=== PATIENT | male | born 1960 | race Caucasian/White ===

== ENCOUNTER 2020-06-01 14:52 | Emergency (ER) | payer OTHER, SELFPAY ==
[2020-06-01] VITALS (49 sets, daily range): BP systolic 114–177; BP diastolic 58–123; PULSE 89–114; RESP 14–23; TEMP 36.4–36.9; O2SAT 91–99
--- NOTE | 2020-06-01 15:00 | DI.CT_ITS ---
EXAM: CT HEAD CERVICAL SPINE WO CLINICAL HISTORY: fall, altered, right hemiparalysis. TECHNIQUE: Imaging Protocol: Axial computed tomography images with coronal and sagittal reformatted images were created and reviewed COMPARISON: No exams were available for comparison FINDINGS: CT Head: Ventricles and Extra axial spaces: Normal in size and morphology for the patient's age. Hemorrhage: None. Cerebral parenchyma: The large left middle cerebral artery distribution infarct. Extensive edema is seen in the left middle cerebral artery distribution. There is effacement of the left hemispheric hermosillo lci. There is also mass effect on the left lateral ventricle. No intracranial hemorrhage is seen. There is an also area of decreased attenuation involving the medial aspect of the left cerebellum. Midline shift: None. Brainstem/Cerebellum: Normal. Calvarium: Normal. Visualized Paranasal sinuses/Mastoids: Clear. Soft Tissues: Unremarkable. CT Cervical Spine: The examination is limited due to patient motion artifact. Bones: No acute fracture or subluxation. There is reversal of the normal cervical lordosis. This may be due to muscle spasm or patient positioning. Soft Tissues: Unremarkable. Lung Apices: Clear. IMPRESSION: 1. Findings consistent with a large acute to subacute left MCA distribution infarct. No evidence of hemorrhagic conversion. 2. Findings suspicious for an acute to subacute left cerebellar lobe infarct. 3. No acute fracture or subluxation in the cervical spine. RADIATION DOSE DELIVERED: 1,882.16mGy.cm Total DLP DATA REPOSITORY: All CT scans at this facility are submitted to the National Radiology Data Registry (NRDR) Dose Index Registry (DIR) with the [employer] (A[employer]). RADIATION OPTIMIZATION: All CT scans at this facility use at least one of these dose optimization te chniques: automated exposure control; mA and/or kV adjustment per patient size (includes targeted exa ms where dose is matched to clinical indication); or iterative reconstruction.
--- NOTE | 2020-06-01 15:00 | DI.CT_ITS ---
EXAM: CT CHEST WO CLINICAL HISTORY: fall, altered, right hemiparalysis. TECHNIQUE: Imaging protocol: Axial computed tomography images were obtained and coronal and sagittal reformatted images were created and reviewed. COMPARISON: No exams were available for comparison FINDINGS: The examination is limited due to patient motion artifact. Tracheobronchial tree: Patent where visualized. Pulmonary parenchyma: There is an infiltrate seen in the right middle lobe. No architectural distort ion. Mediastinum and Sobia: No dominant adenopathy or fluid collection. Small hiatal hernia. Pleura: No effusion or pneumothorax. Heart: The heart is not dilated. No coronary artery calcifications are seen. No pericardial effusion. Aorta: Thoracic aorta non-dilated. Upper abdomen: Status post cholecystectomy. Lymph nodes: Within normal limits. Soft tissues: Unremarkable. Bones:Normal. Examination severely limited due to patient motion artifact. Sternal or rib fractures cannot be excluded. IMPRESSION: 1. Limited examination due to significant patient motion artifact. 2. Right middle lobe infiltrate which may represent atelectasis, scarring or pneumonia. 3. No definite evidence of a pulmonary contusion. RADIATION DOSE DELIVERED: 866.82mGy.cm Total DLP 866.82mGy.cm Total DLP 866.82mGy.cm Total DLP 866.82mGy.cm Total DLP DATA REPOSITORY: All CT scans at this facility are submitted to the National Radiology Data Registry (NRDR) Dose Index Registry (DIR) with the [employer] (ACR). RADIATION OPTIMIZATION: All CT scans at this facility use at least one of these dose optimization te chniques: automated exposure control; mA and/or kV adjustment per patient size (includes targeted exa ms where dose is matched to clinical indication); or iterative reconstruction.
--- NOTE | 2020-06-01 15:00 | RT.EKG_ITS ---
APPROVED REPORT Exam: Resting ECG Patient Location: E HR:97 bpm ECG Measurements Heart Rate 97 AXIS AL 62 P 49 QRSd 104 QRS 16 QT 359 T [id number] QTc 457 Conclusion Sinus rhythm...normal P axis, V-rate 60- 99 Physician: Rate 97, sinus rhythm, intervals normal, no significant ST elevation, however there is min imal depression in V3 through V6, no reciprocal elevation, no STEMI notable artifact secondary to cur rent patient state.
[2020-06-01] MEDS: Normal Saline 1,000 ML 1000 ML IV ×2 (15:10→16:30)
[2020-06-01 15:17] LABS: Abs Immature Grans 0.11 10^3/uL (0.0-0.06); Absolute Basophil Count 0.03 10^3/uL (0.0-0.2); Basophils % 0.2; HCT 51.1 % (40.0-50.0); HGB 16.8 g/dL (13.5-17.5); Immature Grans % 0.6; Lymphocytes % 5.7; MCHC 32.9 % (32.0-36.0); MCV 88.1 fL (80-95); MPV 10.8 fL (8.0-11.0); Monocytes % 7.8; Neutrophils % 85.7; Nucleated RBC 0 %; Platelet Count 298 10^3/uL (130-400); RDW 13.3 % (11.8-14.1); RDW-SD 42.9 fL; WBC 17.15 10^3/uL (4.4-10.8)
[2020-06-01 15:18] LABS: Absolute Lymphocyte Count 0.98 10^3/uL (1.2-3.4); Absolute Monocyte Count 1.34 10^3/uL (0.1-0.8)
[2020-06-01 15:19] LABS: BE (Venous) 1 mmol/L (-2-3); HCO3 (Venous) 26 mmol/L (23-28); O2 Sat (Venous) 60 %; TCO2 (Venous) 23 mmol/L (24-29); pCO2 (Venous) 48 mmHg (41-51); pH (Venous) 7.35 (7.31-7.41); pO2 (Venous) 35 mmHg
[2020-06-01] MEDS: Lidocaine 2% Jelly 6 ML SYR (15:20)
--- NOTE | 2020-06-01 15:20 | ED.GENADUL_ITS ---
Discharge Plan Disposition Patient Disposition: [facility] Condition: Serious Discharge Details Clinical Impression: Stroke, Rhabdomyolysis, Altered mental status Primary Care Provider: Unknown,Unknown ED Provider: Trevor Mariee Home Meds and New Rx's Prescriptions: No Action No Known Home Meds RF: 0 Medical Decision Making Upon my evaluation, this patient had a high probability of imminent or life- threatening deterioration, which required my direct attention, intervention, and personal management. I have personally provided 45 minutes of critical care time exclusive of time spent on separately billable procedures. Time includes review of laboratory data, radiology results, discussion with consultants, and monitoring for potential decompensation. Interventions were performed as documented. 60-year-old male with no known significant past medical history who presents today for evaluation of altered mental status and stroke. Patient was found by friends on the floor of his home, unknown downtime but the patient states it has been 2 days. When EMS arrived he had notable right-sided deficits, blood sugar and vital signs are stable. He was brought to the ER for further assessment. Currently the patient denies any complaints. He denies any headache chest pain shortness of breath. He does not appear to be an overly reliable historian though. History is otherwise limited to EMS report and patient's current stated complaints. No known history of stroke, no known history of blood thinner use. Physical exam demonstrates notable right sided hemiparesis, which is also insensate, no evidence of focal trauma but he does have mild bruising on the upper abdominal/lower chest wall and the anterior aspect, as well as notable bruising of his right hand. No midline cervical thoracic or lumbar spine tenderness when the patient was rolled. No other signs of significant trauma. NIH stroke scale is 16 based on deficits, paralysis, insensate findings and mild slurred speech. Unknown downtime, but expected to be 2 days per patient history. Patient is not a TPA candidate at this time. Will get CT scan of the head neck and chest, give warm fluids to warm him up, as his current temperature is mildly hypothermic. Will evaluate for potential other toxic etiologies that could have brought about the symptoms, will monitor closely and reassess. 5:30 PM Laboratory work-up is returned, white count of 17, lactate of 1.8, electrolytes surprisingly normal, magnesium slightly high at 3, CPK elevated at 2900, clear indication for rhabdomyolysis, electrolytes otherwise stable, urinalysis shows no evidence of infection, proBNP negative suggesting no fluid overload, troponin normal, TSH elevated at 4.52, but does not appear to be indicative of myxedema coma. Urinalysis negative for infection, salicylates acetaminophen and alcohol all negative. CT shows large left MCA distribution stroke without hemorrhagic conversion. Small cerebellar infarct. No signs of bleed. CT negative of the neck, chest CT negative for acute process, hand x-ray negative for acute process. We will transfer patient to [facility] for further stroke management, no indication for TPA at this time. 6:11 PM Still pending [facility] callback, we were contacted by the patient's neighbors, they state that the patient has no other friends or family to speak of, they did asked to be placed on the patient's HIPAA form. This decision was deferred to our briefcase sewer. Patient remains hemodynamically stable here, mental status is unchanged. 7:11 PM I have been in contact with [facility] neurology Dr. Blackwood, we discussed the case review of imaging, he agrees with the assessment and plan, and does favor transfer to [facility]. Patient will be given rectal aspirin. Repeat neurologic exam here demonstrates potential minimal improvement but certainly no decline or worsening. He remains hemodynamically stable. For his rhabdomyolysis he has been given 2 L, followed by 125 of normal saline per hour. I have extensively reviewed the treatment plan with the patient. I have addressed all patient concerns at this time. I have also discussed the plan with the admitting physician and they agree with the current assessment and plan and have agreed to assume responsibility for the patient. All parties demonstrate verbal understanding and agreement with our assessment and plan at this time. At time of transfer the patient was reassessed and continued to demonstrate current medical stability. No signs of acute respiratory distress requiring intubation, hemodynamic instability requiring pressor support, or rapidly declining mental status. The patient is stable for transport. EKG 15: 15 Rate 97, sinus rhythm, intervals normal, no significant ST elevation, however there is minimal depression in V3 through V6, no reciprocal elevation, no STEMI notable artifact secondary to current patient state. IMPRESSION: 1. Findings compatible with acute to subacute left MCA territory infarct involving nearly the entire left MCA distribution. No evidence of hemorrhagic conversion at this time. 2. Suspected additional acute to subacute left cerebellar lobe infarct. IMPRESSION: No definite acute fracture or dislocation of the cervical spine on this exam limited by motion. Thank you for allowing us to participate in the care of your patient. Dictated and Authenticated by: Deniz Sparks DO 06/01/2020 4:58 PM Eastern Time ([place] & [place]) FINDINGS: Bones/joints: No acute fracture or dislocation. 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 Soft tissues: Nonspecific soft tissue swelling about the hand. IMPRESSION: Soft tissue swelling without evidence of acute fracture or dislocation. Thank you for allowing us to participate in the care of your patient. Dictated and Authenticated by: Deniz Sparks DO 06/01/2020 5:26 PM Eastern Time ([place] & [place]) IMPRESSION: Limited study due to significant respiratory motion degradation artifact. Given the limitation, there is no pulmonary contusion, pneumothorax or pleural effusion. Anterior right upper lobe atelectasis. Thank you for allowing us to participate in the care of your patient. HPI General Date/Time Provider Initiated Documentation: 06/01/20 15:02 . HPI Narrative: 60-year-old male with no known significant past medical history who presents today for evaluation of altered mental status and stroke. Patient was found by friends on the floor of his home, unknown downtime but the patient states it has been 2 days. When EMS arrived he had notable right-sided deficits, blood sugar and vital signs are stable. He was brought to the ER for further assessment. Currently the patient denies any complaints. He denies any headache chest pain shortness of breath. He does not appear to be an overly reliable historian though. History is otherwise limited to EMS report and patient's current stated complaints. No known history of stroke, no known history of blood thinner use. Related Data Home Medications Medication Instructions Recorded Confirmed Unknown [No Known Home Meds] 06/01/20 06/01/20 Allergies Allergy/AdvReac Type Severity Reaction Status Date / Time No Known Allergies Allergy Unverified 06/01/20 19:00 Review of Systems All systems reviewed & are unremarkable except as noted in HPI and [facility] Smoking risk assessment performed?: No Exam Narrative Exam Narrative: 1.Const: Well-nourished, Well-developed, appearing stated age 2.Eyes: PERRL, no conjunctival injection, and symmetrical lids. 3.ENT: Atraumatic external nose and ears. Notably dry MM. Neck: Symmetric, trachea midline, No thyromegaly. C-collar in place 4.CVS: +S1/S2, No murmurs or gallops. Peripheral pulses 2+ and equal in all extremities. Brisk capillary refill in all extremities. 5.RESP: Unlabored respiratory effort. Minimal crackles, no wheezes or rhonchi 6.GI: Soft, Nontender/Nondistended, No hepatosplenomegaly. No guarding or rebound. Bruises over the upper anterior abdomen just below the rib cage on the right and left. No evidence of clinically surgical abdomen 7.MSK: Extremities w/o deformity or ttp, mild to moderate swelling over the right hand, mild bruising, however the hand is insensate,no cyanosis or clubbing. Mild bruising over the knees bilaterally on the anterior aspect. No tenderness. 8.Skin: Warm, Dry. Bruises over the knees, right hand, no signs of significant, notably unkempt 9.Neuro: CN 2-12 seem to be intact but he does demonstrate some mild right-sided paralysis of his face, plan and paralysis of the right upper extremity and near complete paralysis of the right lower extremity with the ability to slightly twitch his toes. He is insensate over the right upper and lower extremity, and the right side of his chest. Normal strength and sensation for the left upper and left lower extremity. All cardinal planes of vision appear to be intact, difficult to determine if there is a visual field deficit though. Mild slurring of his speech, NIH stroke scale is 16 based primarily on right sided deficits, mild slurring, and inattention. 10.Psych: (AAO) x2. Appropriate mood and affect Course Lab/Test Results Lab/Test Results: 06/01/20 15:19 Urine - Cath Sidhu Indwelling Urine Culture - Pending 06/01/20 15:02 Blood Blood Culture - Pending 06/01/20 15:02 Blood Blood Culture - Pending Laboratory Tests Range/Units 06/01/20 15:10 WBC (4.4-10.8) 10^3/uL 17.15 H RBC (4.36-5.78) 10^6/uL 5.80 H Hgb (13.5-17.5) g/dL 16.8 Hct (40.0-50.0) % 51.1 H MCV (80-95) fL 88.1 MCH (27.0-33.0) pg 29.0 MCHC (32.0-36.0) % 32.9 RDW (11.8-14.1) % 13.3 Plt Count (130-400) 10^3/uL 298 MPV (8.0-11.0) fL 10.8 Immature Gran % 0.6 Neutrophils % 85.7 Lymphocytes % 5.7 Monocytes % 7.8 Eosinophils % 0.0 Basophils % 0.2 Nucleated RBC % % 0 Absolute Neutrophils (1.2-6.7) 10^3/uL 14.70 H Absolute Lymphocytes (1.2-3.4) 10^3/uL 0.98 L Absolute Monocytes (0.1-0.8) 10^3/uL 1.34 H Absolute Eosinophils (0.0-0.7) 10^3/uL 0.00 Absolute Basophils (0.0-0.2) 10^3/uL 0.03
[2020-06-01 15:21] LABS: Lactate 1.8 mmol/L (0.6-1.4)
[2020-06-01 15:28] LABS: Bilirubin Small (Negative); Blood Moderate (Negative); Clarity Clear (Clear); Glucose Negative (Negative); Ketones 15 mg/dL (Negative); Leukocyte Esterase Negative (Negative); Nitrite Negative (Negative); Specific Gravity >= 1.030 (1.005-1.025)
[2020-06-01 15:30] LABS: INR 1.1 (0.9-1.1); PTT Activated 24.5 sec (21.0-27.5); Prothrombin Time 10.6 sec (9.3-11.0)
--- NOTE | 2020-06-01 15:30 | DI.RAD_ITS ---
EXAM: XR HAND RT COMPLETE CLINICAL HISTORY: fall, altered, swollen right hand. TECHNIQUE: 2D digital imaging was performed. COMPARISON: No exams were available for comparison FINDINGS: BONES: No acute fracture is present. No bony destructive lesion is seen. JOINTS: No dislocation present. Moderately severe degenerative changes of the 1st CMC. SOFT TISSUE: Generalized soft tissue swelling about the hand. No radiopaque foreign bodies. IMPRESSION: No acute fracture or dislocation.Generalized soft tissue swelling of the hand. DATA REPOSITORY: RADIATION DOSE DELIVERED:
[2020-06-01 15:41] LABS: Bacteria Negative HPF (Negative); C & S Indicated? No; Casts 0-2 Hyaline LPF (Negative); Crystals Negative HPF (Negative); Epithelial Cells Rare HPF (Negative); Mucus Negative (Negative); WBC 0-2 HPF (0-5)
[2020-06-01 15:41] LABS: Salicylate < 2.8 mg/dL (2.8-20.0)
[2020-06-01 16:01] LABS: ALT 76 U/L (16-63); AST 104 U/L (15-37); Albumin 3.8 g/dL (3.4-5.0); Alkaline Phosphatase 105 U/L (46-116); BUN 47 mg/dL (7-18); Bilirubin, Total 1.4 mg/dL (0.2-1.0); CREATININE 1.14 mg/dL (0.70-1.30); Calcium 9.1 mg/dL (8.5-10.1); Chloride 103 mmol/L (98-107); Glucose 123 mg/dL (74-106); Lipase 61 U/L (73-393); NT-proBNP 135 pg/mL (<300); Potassium 4.6 mmol/L (3.5-5.1); Sodium 140 mmol/L (136-145); TSH (W/Ref FT4) 4.52 uIU/mL (0.36-3.74); Total Protein 7.7 g/dL (6.4-8.2)
[2020-06-01 16:07] LABS: Creatine Kinase 2937 U/L (39-308); Troponin I < 0.05 ng/mL (<0.06)
[2020-06-01 16:20] LABS: Acetaminophen < 2 ug/mL (10-30)
[2020-06-01 16:25] LABS: ETHANOL BLOOD < 3.0 mg/dL (<3)
--- NOTE | 2020-06-01 16:37 | DI.VRAD_ITS ---
PROCEDURE INFORMATION: Exam: CT Chest Without Contrast; Diagnostic Exam date and time: 06/01/2020 4:20 PM Age: 60 years old Clinical indication: Other: Altered mental status TECHNIQUE: Imaging protocol: Diagnostic computed tomography of the chest without contrast. COMPARISON: No relevant prior studies available. FINDINGS: Lungs: Anterior right upper lobe atelectasis. No large consolidation or pulmonary nodule. No opacity to suggest pulmonary contusion. Pleural space: No pneumothorax or pleural effusion. Heart: Unremarkable. No cardiomegaly. No pericardial effusion. Mediastinal space: Small hiatal hernia. Aorta: Unremarkable. No aortic aneurysm. Lymph nodes: No lymphadenopathy in the chest. Gallbladder and bile ducts: Cholecystectomy clips. Bones/joints: Significant respiratory motion degrades images of the osseous structures. Sternal or rib fractures cannot be excluded. No evidence for thoracic spine fracture or spondylolisthesis. Soft tissues: Unremarkable. IMPRESSION: Limited study due to significant respiratory motion degradation artifact. Given the limitation, there is no pulmonary contusion, pneumothorax or pleural effusion. Anterior right upper lobe atelectasis. Dictated and Authenticated by: Kali Rodrate MD. Ordering:MICHAEL Murray MD
--- NOTE | 2020-06-01 16:41 | NUR.NOTE ---
c collar applied ER triage.Nursing Note:
--- NOTE | 2020-06-01 16:58 | DI.VRAD_ITS ---
Addendum created by Deniz Sparks DO on 06/01/2020 5:08:26 PM EST: Impression points [address] head were discussed with Dr. Mariee by Dr. Sparks at approximately 4:05 p.m. on 06/01/2020 by phone. Central standard time. Initial report created on 06/01/2020 4:58:15 PM EST: PROCEDURE INFORMATION: Exam: CT Head Without Contrast Exam date and time: 06/01/2020 4:16 PM Age: 60 years old Clinical indication: Altered mental status/memory loss TECHNIQUE: Imaging protocol: Computed tomography of the head without contrast. Other technique: STROKE PROTOCOL was implemented. COMPARISON: No relevant images were readily available for comparison purposes. FINDINGS: Brain: Exam mildly limited by motion. There is a relatively large area of low attenuation involving nearly the entire left MCA distribution including the basal ganglia, insula, internal capsule. No evidence of acute intracranial hemorrhage. There is however evidence of cerebral edema with effacement of the left hemispheric sulci as well as mild effect on the left lateral ventricle. Midline shift is minimal measuring approximately 2 mm rightward. There is also less conspicuous low-attenuation involving the left cerebellar lobe. Image 78 series 7. Cerebral ventricles: no evidence of hydrocephalus currently Bones/joints: No acute skull fracture Paranasal sinuses: Clear Mastoid air cells: Clear Soft tissues: Unremarkable superficial soft tissues IMPRESSION: 1. Findings compatible with acute to subacute left MCA territory infarct involving nearly the entire left MCA distribution. No evidence of hemorrhagic conversion at this time. 2. Suspected additional acute to subacute left cerebellar lobe infarct. ASSESSMENT: ASPECTS ([place] Stroke Program Early CT Score) is 0. PROCEDURE INFORMATION: Exam: CT Cervical Spine Without Contrast Exam date and time: 06/01/2020 4:16 PM Age: 60 years old Clinical indication: Altered mental status/memory loss TECHNIQUE: Imaging protocol: Computed tomography images of the cervical spine without contrast. COMPARISON: No relevant images were readily available for comparison purposes. FINDINGS: Vertebrae: Cervical vertebral body heights are well maintained. There is reversal of the normal lordotic curvature however this could be positional and/or degenerative in nature. No significant listhesis is present. Bony degenerative changes are moderate. Soft tissues: Limited evaluation cervical soft tissues unremarkable. Lungs: Lung apices are unremarkable although obscured by motion. Other findings: Exam limited by motion. IMPRESSION: No definite acute fracture or dislocation of the cervical spine on this exam limited by motion. Dictated and Authenticated by: Deniz Sparks MD. Ordering:MICHAEL Murray MD
[2020-06-01] MEDS: Normal Saline 1,000 ML 150 ML IV (17:15)
--- NOTE | 2020-06-01 17:27 | DI.VRAD_ITS ---
PROCEDURE INFORMATION: Exam: XR Right Hand Exam date and time: 06/01/2020 3:31 PM Age: 60 years old Clinical indication: Injury or trauma; Swelling (edema); Patient HX: Fall, altered, swollen right hand TECHNIQUE: Imaging protocol: XR Right hand. Views: 3 or more views. COMPARISON: No relevant images were readily available for comparison purposes. FINDINGS: Bones/joints: No acute fracture or dislocation. 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 Soft tissues: Nonspecific soft tissue swelling about the hand. IMPRESSION: Soft tissue swelling without evidence of acute fracture or dislocation. Dictated and Authenticated by: Deniz Sparks MD. Ordering:MICHAEL Murray MD
--- NOTE | 2020-06-01 17:58 | NUR.NOTE ---
c collar taken off per Dr [id number] Note:
[2020-06-01 18:01] LABS: FREE T4 0.65 ng/dL (0.76-1.46)
[2020-06-01] MEDS: Aspirin 300 MG SUPP PR (19:25)
[2020-06-01 20:29] LABS: Troponin I < 0.05 ng/mL (<0.06)
== END 2020-06-01 20:50 | disposition short-term general hospital (02) ==
PROVIDERS: Emergency Provider Student in an Organized Health Care Education/Training Program
DX: I63.89 Other cerebral infarction (principal); R29.716 NIHSS score 16; I69.351 Hemiplegia and hemiparesis following cerebral infarction affecting right dominant side; T79.6XXA Traumatic ischemia of muscle, initial encounter
CPT/HCPCS: 36415; 51702; 71250; 80053; 82550; 82805; 83690; 87040; 93005; 96360; 96361; 99291; 70450; 72125; 73130; 80320; 80329; 81003; 81015; 83605; 83735; 83880; 84439; 84443; 84484; 85025; 85610; 85730; 87086; 93010

== ENCOUNTER 2021-04-21 18:58 | Outpatient (REF) | payer OTHER, SELFPAY ==
[2021-04-21 20:55] LABS: Anion Gap 8.9 mmol/L (3-11); BUN 10 mg/dL (7-18); CO2 30.1 mmol/L (21.0-32.0); CREATININE 0.8 mg/dL (0.70-1.30); Calcium 9.3 mg/dL (8.5-10.1); Calculated LDL 69 mg/dL (<100); Chloride 101 mmol/L (98-107); Cholesterol 120 mg/dL (<200); Glucose 88 mg/dL (74-106); HDL Cholesterol 36 mg/dL (40-60); Potassium 3.8 mmol/L (3.5-5.1); Sodium 140 mmol/L (136-145); TSH (W/Ref FT4) 0.89 uIU/mL (0.36-3.74); Triglyceride 77 mg/dL (<150)
[2021-04-23 09:39] LABS: Hepatitis C Ab w Rflx HCV PCR Negative (Negative)
== END 2021-04-21 18:59 | disposition home or self-care (01) ==
LOC: NCHCN 18:58
PROVIDERS: PCP Family Medicine; Visit Provider Family Medicine
DX: E03.9 Hypothyroidism, unspecified (principal); I10 Essential (primary) hypertension; I69.953 Hemiplegia and hemiparesis following unspecified cerebrovascular disease affecting right non-dominant side; Z11.59 Encounter for screening for other viral diseases
CPT/HCPCS: 80048; 80061; 86803; 84443

== ENCOUNTER → 2021-06-14 13:27 | Outpatient (BNVA) | payer MEDICARE, SELFPAY | PROVIDERS: PCP Family Medicine; Referring Provider Family Medicine; Visit Provider Psychiatry & Neurology Neurology | DX: I77.71 Dissection of carotid artery (principal); I63.9 Cerebral infarction, unspecified; G47.8 Other sleep disorders; F32.A Depression, unspecified; I10 Essential (primary) hypertension | CPT/HCPCS: 99215 ==

== ENCOUNTER 2021-07-21 01:31 | Outpatient (CLI) | payer OTHER, SELFPAY ==
[2021-07-21] MEDS: Omnipaque 350 MG/ML 100 ML BTL IJ (12:09)
--- NOTE | 2021-07-21 12:11 | DI.CT_ITS ---
Exam(s) CT BRAIN NECK CTA EXAM: CT BRAIN NECK CTA CLINICAL HISTORY: L ICA dissection and small pseudoaneurysm,cva,dissection,i63.9 TECHNIQUE: COMPARISON: CT CT ANGIOGRAM CAROTIDS AND TANACROSS OF TODD from 06/02/2020 FINDINGS: CT angiography the neck head was performed according to the usual protocol with intravenous infusion of 85 cc of Omnipaque 350. Visualized lung apices are clear. No abnormality of the tracheolaryngeal structures. No cervical ma ss or adenopathy. Aortic arch and common carotid arteries are unremarkable. No specific abnormality of the vertebral or basilar arteries. Prior study from [facility] of June 02 showed focal caliber change in the left internal carotid artery with suggestion of mural hematoma at C2 level and focal outpouching the C 1 C2. 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 Total diameter at this site is about 9 millimeters, as compared to about 6 millimeter diameter of distal most cervical ICA. No intimal flap identified. No significant stenosis at this level. Right internal carotid is unremarkable throughout its course. Prior study showed obstruction of the M1 segment of left middle cerebral artery. This appears to be recanalized on today's examination with reconstitution of 2 branch vessels and some more peripheral v essels are also present, particularly the posterior sylvian fissure region although vascular is a henok n of the anterior sylvian region appears lacking. Bilateral anterior cerebral arteries, left middle cerebral artery, and posterior cerebral arteries an d their branches appear intact. There is a left hemisphere infarct involving middle cerebral artery territory with ex vacuo enlargeme nt of left lateral ventricle. There is no evidence of acute intracranial hemorrhage mass effect or m idline shift. Orbital and temporal bone structures appear intact. IMPRESSION: Interval recanalization or partial recanalization of obstructed left middle cerebral artery with pres umed persistent obstruction of trifurcation branches and evolving left middle cerebral artery territo ry infarct. 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 RADIATION DOSE DELIVERED: 2,356.75mGy.cm Total DLP !Error CTDIvol RADIATION OPTIMIZATION: All CT scans at this facility use at least one of these dose optimization te chniques: automated exposure control; mA and/or kV adjustment per patient size (includes targeted exa ms where dose is matched to clinical indication); or iterative reconstruction.
== END 2021-07-21 01:51 ==
LOC: DI 01:31
PROVIDERS: PCP Family Medicine; Visit Provider Psychiatry & Neurology Neurology
DX: I63.9 Cerebral infarction, unspecified (principal); I77.71 Dissection of carotid artery
CPT/HCPCS: 70496; 70498; 82565; J3490

== ENCOUNTER 2021-07-26 11:56 | Emergency (ER) | payer OTHER, SELFPAY ==
[2021-07-26] VITALS (26 sets, daily range): BP systolic 140–159; BP diastolic 69–99; PULSE 74–104; RESP 0–30; TEMP 36.6; O2SAT 91–96
--- NOTE | 2021-07-26 11:45 | DI.CT_ITS ---
Exam(s) CT HEAD - STROKE PROTOCOL EXAM: CT HEAD - STROKE PROTOCOL CLINICAL HISTORY: R sided paralysis, r/o acute cva. TECHNIQUE: Imaging Protocol: Axial computed tomography images with coronal and sagittal reformatted images were created and reviewed COMPARISON: CT CT HEAD CERVICAL SPINE WO from 06/01/[address] BRAIN NECK CTA from 07/21/2021 FINDINGS: Ventricles and Extra axial spaces: no change compensatory dilatation left lateral ventricle. Hemorrhage: None. Cerebral parenchyma: no change in large left MCA territory infarct extending from the temporal throug h upper right frontal AND parietal regions. Midline shift: None. Brainstem/Cerebellum: Normal. Calvarium: Normal. Visualized Paranasal sinuses/Mastoids: Clear. Soft Tissues: Unremarkable. IMPRESSION: Large old left MCA infarct. No acute intracranial process. RADIATION DOSE DELIVERED: Total DLP DATA REPOSITORY: All CT scans at this facility are submitted to the National Radiology Data Registry (NRDR) Dose Index Registry (DIR) with the [employer] (ACR). RADIATION OPTIMIZATION: All CT scans at this facility use at least one of these dose optimization te chniques: automated exposure control; mA and/or kV adjustment per patient size (includes targeted exa ms where dose is matched to clinical indication); or iterative reconstruction.
--- NOTE | 2021-07-26 11:45 | RT.EKG_ITS ---
APPROVED REPORT Exam: Resting ECG Reason for Exam: stroke Patient Location: E HR:84 bpm ECG Measurements Heart Rate 84 AXIS OH 180 P 50 QRSd 105 QRS 38 QT 402 T 26 QTc 475 Conclusion Sinus rhythm...normal P axis, V-rate 60- 99. Sinus. Normal axis. No STEMI. I have reviewed and interpreted ECG and agree with software generated interpretation.
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
[2021-07-26 12:36] LABS: Abs Immature Grans 0.04 10^3/uL (0.0-0.06); Absolute Basophil Count 0.06 10^3/uL (0.0-0.2); Absolute Eosinophil Count 0.13 10^3/uL (0.0-0.7); Absolute Lymphocyte Count 1.53 10^3/uL (1.2-3.4); Absolute Neutrophil Count 5.27 10^3/uL (1.2-6.7); Basophils % 0.8; Eosinophils % 1.7; HCT 45.2 % (40.0-50.0); HGB 14.5 g/dL (13.5-17.5); Immature Grans % 0.5; Lymphocytes % 20.6; MCH 28.3 pg (27.0-33.0); MCHC 32.1 % (32.0-36.0); MCV 88.1 fL (80-95); MPV 10.4 fL (8.0-11.0); Monocytes % 5.4; Nucleated RBC 0 %; Platelet Count 267 10^3/uL (130-400); RBC 5.13 10^6/uL (4.36-5.78); RDW 13.2 % (11.8-14.1); RDW-SD 42.5 fL; WBC 7.43 10^3/uL (4.4-10.8)
[2021-07-26 12:37] LABS: Bilirubin Negative (Negative); Blood Negative (Negative); Clarity Clear (Clear); Glucose Negative (Negative); Ketones Negative (Negative); Leukocyte Esterase Negative (Negative); Nitrite Negative (Negative); Specific Gravity 1.025 (1.005-1.025)
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
[2021-07-26 12:47] LABS: Bacteria Negative HPF (Negative); C & S Indicated? No; Casts 3-5 Hyaline LPF (Negative); Crystals Negative HPF (Negative); Epithelial Cells Few HPF (Negative); Mucus Moderate (Negative); RBC Negative HPF (0-2); WBC Negative HPF (0-5)
--- NOTE | 2021-07-26 12:50 | DI.RAD_ITS ---
Exam(s) XR CHEST 1V IN DI DEPT EXAM: XR CHEST 1V IN DI DEPT CLINICAL HISTORY: possible cva vs seizure, r/o acute disease TECHNIQUE: 2D digital imaging was performed. AP semi-erect view. COMPARISON: CT CT CHEST WO from 06/01/2020 FINDINGS: LUNGS: Clear. No pleural abnormality seen. HEART: Normal. MEDIASTINUM: Normal. BONES: Unremarkable. IMPRESSION: No acute pulmonary findings. DATA REPOSITORY: RADIATION DOSE DELIVERED:
[2021-07-26] MEDS: levETIRAcetam 1,000 MG in Normal Saline 100 ML 400 MG IVPB (12:56)
[2021-07-26 13:04] LABS: ALT 20 U/L (16-63); AST 17 U/L (15-37); Albumin 3.6 g/dL (3.4-5.0); Alkaline Phosphatase 105 U/L (46-116); Anion Gap 12.3 mmol/L (3-11); BUN 10 mg/dL (7-18); Bilirubin, Total 1.5 mg/dL (0.2-1.0); CO2 24.7 mmol/L (21.0-32.0); Calcium 8.7 mg/dL (8.5-10.1); Chloride 103 mmol/L (98-107); Glucose 119 mg/dL (74-106); Potassium 3.2 mmol/L (3.5-5.1); Sodium 140 mmol/L (136-145); Total Protein 7.2 g/dL (6.4-8.2); Troponin I < 50 ng/L (<or=60)
[2021-07-26] MEDS: Normal Saline 1,000 ML 1000 ML IV (13:30)
[2021-07-26] MEDS: Potassium Chloride 20 MEQ TABCR 40 MEQ PO (13:55)
[2021-07-26] MEDS: ACETAMINOPHEN 1,000 MG/100 ML BTL 400 MG IVPB (15:16)
[2021-07-26] MEDS: levETIRAcetam 500 MG TAB 3000 MG PO (15:57)
== END 2021-07-26 16:26 | disposition home or self-care (01) ==
PROVIDERS: Emergency Provider Physician Assistant; PCP Family Medicine
DX: R56.9 Unspecified convulsions (principal); I69.351 Hemiplegia and hemiparesis following cerebral infarction affecting right dominant side; S00.01XA Abrasion of scalp, initial encounter; S00.512A Abrasion of oral cavity, initial encounter; V89.2XXA Person injured in unspecified motor-vehicle accident, traffic, initial encounter
CPT/HCPCS: 36415; 80053; 93005; 96361; 96365; 96375; 99291; 70450; 71045; 72125; 81003; 81015; 83735; 84484; 85025; 93010; J0131; J1953

== ENCOUNTER → 2021-08-09 10:05 | Outpatient (BNVA) | payer OTHER, SELFPAY | PROVIDERS: PCP Family Medicine; Referring Provider Family Medicine; Visit Provider Psychiatry & Neurology Neurology | DX: I69.351 Hemiplegia and hemiparesis following cerebral infarction affecting right dominant side (principal); I69.398 Other sequelae of cerebral infarction; G40.509 Epileptic seizures related to external causes, not intractable, without status epilepticus; Z79.82 Long term (current) use of aspirin; G47.8 Other sleep disorders; F32.A Depression, unspecified; Z60.2 Problems related to living alone | CPT/HCPCS: 99215 ==

== ENCOUNTER → 2021-10-07 09:10 | Outpatient (BNVA) | payer OTHER, SELFPAY | PROVIDERS: PCP Family Medicine; Referring Provider Family Medicine; Visit Provider Psychiatry & Neurology Neurology | DX: I69.351 Hemiplegia and hemiparesis following cerebral infarction affecting right dominant side (principal); I69.322 Dysarthria following cerebral infarction; I77.71 Dissection of carotid artery; G47.8 Other sleep disorders; F32.A Depression, unspecified | CPT/HCPCS: 99214 ==

== ENCOUNTER 2021-12-18 11:10 | Emergency (ER) | payer OTHER, SELFPAY ==
--- NOTE | 2021-12-18 11:00 | DI.CT_ITS ---
Exam(s) CT HEAD - STROKE PROTOCOL EXAM: CT HEAD - STROKE PROTOCOL CLINICAL HISTORY: rt weakness. TECHNIQUE: Imaging Protocol: Axial computed tomography images with coronal and sagittal reformatted images were created and reviewed COMPARISON: CT CT HEAD - STROKE PROTOCOL from 07/26/2021 FINDINGS: Ventricles and Extra axial spaces: Compensatory dilatation of the left lateral ventricle. No skull f racture or sinus opacification. Hemorrhage: None. Cerebral parenchyma: Large old left MCA infarct. No evidence of an acute infarct, hemorrhage or mass . Atrophy. Midline shift: None. Brainstem/Cerebellum: Normal. Calvarium: Normal. Visualized Paranasal sinuses/Mastoids: Clear. Soft Tissues: Unremarkable. IMPRESSION: Old left MCA territory infarct. No acute intracranial process. RADIATION DOSE DELIVERED: 1,046.59mGy.cm Total DLP DATA REPOSITORY: All CT scans at this facility are submitted to the National Radiology Data Registry (NRDR) Dose Index Registry (DIR) with the [employer] ([employer]). RADIATION OPTIMIZATION: All CT scans at this facility use at least one of these dose optimization te chniques: automated exposure control; mA and/or kV adjustment per patient size (includes targeted exa ms where dose is matched to clinical indication); or iterative reconstruction.
--- NOTE | 2021-12-18 11:00 | RT.EKG_ITS ---
APPROVED REPORT Exam: Resting ECG Reason for Exam: stroke Patient Location: E HR:92 bpm ECG Measurements Heart Rate 92 AXIS [place] 162 P 27 QRSd 102 QRS -7 QT 367 T 23 QTc 455 Conclusion Sinus rhythm...normal P axis, V-rate 60- 99 Inferior infarct, old...Q >35mS, II III aVF
--- NOTE | 2021-12-18 11:17 | W.ED.GENAD ---
Discharge Plan Disposition Patient Disposition: HOME Discharge Details Clinical Impression: Seizure Primary Care Provider: Antonella Romeo ED Provider: Lauro Alvarez Home Meds and New Rx's Prescriptions: No Action Ultra CoQ10 75 mg capsule 75 mg PO DAILY gvlddfz-nxan-yplen-oreg-capryl 100 mg-150 mg- 50 mg-150 mg capsule 1 cap PO DAILY zonisamide 100 mg capsule 200 mg PO HS Qty: 180 3RF aspirin [Adult Aspirin Regimen] 81 mg tablet,delayed release (DR/EC) 81 mg PO DAILY thyroid (pork) 120 mg tablet 120 mg PO DAILY atorvastatin 80 mg tablet 80 mg PO DAILY losartan 25 mg tablet 25 mg PO DAILY Discharge Instructions Additional Instructions: It is extremely important that you are compliant with your antiseizure medication. You were given an extra dose in the emergency department. Resume taking your medications as prescribed tonight Follow-up with your primary care doctor and neurologist next week HPI General Date/Time Provider Initiated Documentation: 12/18/21 11:15. HPI Narrative: 61-year-old gentleman brought to the hospital by ambulance after neighbors found him to be with an altered mental status. He was seen normal at 930 this morning by neighbors. Approximately 1030 he was found with an altered mental status at home. Upon EMS arrival he was found to have a right-sided deficit which is chronic from a stroke he had years ago. Normal fingerstick per EMS. EMS states that he was incontinent of urine. He was transferred transferred to the hospital. Patient arrives to the emergency department unaware of what happened this morning. He remembers walking his dogs because they were being taken away by animal control. Remembers going back and help and then being transported by EMS. Does not recall any trauma. He was found sitting on the ground by EMS. He denies any headaches. He denies any new weakness any signs of focality other than his chronic right arm weakness. No neck pain. No chest pain. No shortness of breath. No cough. No abdominal pain. No nausea vomiting. No back pain. No lower extremity pain. HPI is limited secondary to patient's amnesia Related Data Home Medications Medication Instructions Recorded Confirmed aspirin 81 mg tablet,delayed 81 mg PO DAILY 04/28/21 12/18/21 release (Adult Aspirin Regimen) atorvastatin 80 mg tablet 80 mg PO DAILY 04/28/21 12/18/21 losartan 25 mg tablet 25 mg PO DAILY 04/28/21 12/18/21 thyroid (pork) 120 mg tablet 120 mg PO DAILY 04/28/21 12/18/21 coenzyme Q10 75 mg capsule (Ultra 75 mg PO DAILY 08/09/21 12/18/21 CoQ10) tumeric 100 mg-tiffany 150 mg-olive 1 cap PO DAILY 08/09/21 12/18/21 50 mg-oreg 150 mg-caprylate capsule zonisamide 100 mg capsule 200 mg PO HS #180 caps 10/07/21 12/18/21 Previous Rx's Medication Instructions Recorded zonisamide 100 mg capsule 200 mg PO HS #180 caps 10/07/21 Allergies Allergy/AdvReac Type Severity Reaction Status Date / Time pollen extracts Allergy Intermediate Verified 12/18/21 11:28 General MARLON: 1 Review of Systems Narrative: Constitutional negative for fever and chills. Negative for malaise and fatigue HEENT. No sore throat. No visual changes. Cardiovascular no chest pain no palpitations Pulmonary no cough no shortness of breath no dyspnea on exertion GI no abdominal pain no nausea no vomiting, normal appetite no dysuria no frequency. No hematuria. Patient does not recall being incontinent of urine at home. MSK no myalgias or arthralgias. Chronic right arm weakness. Neuro no headaches, left upper extremity and lower extremities no numbness no focal weakness. No difficulty with speech. No visual Skin small bruises to the bilateral knees. Patient states that he is always bumping into things. Endo no unexplained weight gain or weight loss. Hematological not on blood thinners. PFSH All Active Problems (Updated 12/18/21 @ 13:17 by Lauro Alvarez MD) Seizure (Acute) Depression (Chronic) Non-restorative sleep (Acute) Dissection of left carotid artery (Acute) Medical History CVA (cerebral vascular accident) Hyperlipidemia Hypertension Hypothyroidism Obesity (BMI 30.0-34.9) Surgical History Hx of shoulder surgery Social History Smoking/Tobacco Use Status: Former Tobacco Use Smoking risk assessment performed?: Yes Alcohol Intake: current Alcohol Intake frequency: a few times a week Alcohol type: hard liquor Drug use: Never Substance use type: does not use Household members: none Number of Children: 0 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 This lesion consistent with tongue biting. Patient is unaware that he had this. Supple neck no midline tenderness. Chest is clear to auscultation bilaterally. Heart is regular rhythm and rate no murmurs rubs or gallops Abdomen soft nondistended nontender Skin no rashes Neuro. 2-12 grossly intact. Normal cerebellar function. Lower extremities 5/5 strength. No deficits. Left upper extremity full range of motion no deficits normal sensation. Right upper extremity contracted secondary to old stroke. Psych flat mood Course 1:15 PM patient is back to baseline. He tells me that his last drink was either yesterday or 2 days ago. The patient has not been compliant with his antiseizure medication for the past couple days. States that he refilled his prescription yesterday and started taking his blood after being off them for a little while. He will be given an extra dose of zonisamide here in the emergency department His work-up is essentially negative. He is back to baseline. No further evaluation
[2021-12-18 11:23] VITALS: PULSE 97; RESP 18; O2SAT 92
--- NOTE | 2021-12-18 11:40 | DI.VRAD_ITS ---
PROCEDURE INFORMATION: Exam: CT Head Without Contrast Exam date and time: 12/18/2021 11:17 AM Age: 61 years old Clinical indication: Other: RT weakness TECHNIQUE: Imaging protocol: Computed tomography of the head without contrast. COMPARISON: CT HEAD - STROKE PROTOCOL 07/26/2021 11:58 AM FINDINGS: Brain: Stable encephalomalacia in the left frontal parietal temporal lobes, insula , left basal ganglia, likely sequela of old left middle cerebral artery infarct. Subjacent ex vacuo dilatation of the left lateral ventricle due to encephalomalacia. Sulci and basal cisterns are normal. There is no extra-axial fluid collection. Cerebral ventricles: No hydrocephalus. Paranasal sinuses: Visualized sinuses are unremarkable. No fluid levels. Mastoid air cells: Visualized mastoid air cells are well aerated. Bones/joints: No acute fracture. Soft tissues: Unremarkable. IMPRESSION: 1. No acute intracranial abnormality. 2. Stable encephalomalacia in the in the left cerebral hemisphere in the territory of the middle cerebral artery. Dictated and Authenticated by: Jerry Mclaughlin MD. Ordering:REGINALDO Restrepo MD
[2021-12-18 11:50] VITALS: PULSE 90; RESP 15; O2SAT 95
[2021-12-18 12:00] LABS: Abs Immature Grans 0.03 10^3/uL (0.0-0.06); Absolute Basophil Count 0.03 10^3/uL (0.0-0.2); Absolute Eosinophil Count 0.04 10^3/uL (0.0-0.7); Absolute Lymphocyte Count 0.73 10^3/uL (1.2-3.4); Absolute Neutrophil Count 6.98 10^3/uL (1.2-6.7); Basophils % 0.4; Eosinophils % 0.5; HCT 42.8 % (40.0-50.0); HGB 13.8 g/dL (13.5-17.5); Immature Grans % 0.4; Lymphocytes % 8.9; MCH 28.5 pg (27.0-33.0); MCHC 32.2 % (32.0-36.0); MCV 88 fL (80-95); MPV 10.8 fL (8.0-11.0); Monocytes % 4.9; Neutrophils % 84.9; Platelet Count 215 10^3/uL (130-400); RBC 4.84 10^6/uL (4.36-5.78); RDW 13.2 % (11.8-14.1); RDW-SD 43.1 fL; WBC 8.21 10^3/uL (4.4-10.8)
[2021-12-18 12:08] LABS: Bilirubin Negative (Negative); Blood Negative (Negative); Clarity Clear (Clear); Glucose Negative (Negative); Ketones Negative (Negative); Leukocyte Esterase Negative (Negative); Nitrite Negative (Negative); pH 6.5 (5-8)
[2021-12-18 12:10] VITALS: PULSE 89; RESP 20; O2SAT 93
[2021-12-18 12:10] LABS: ALT 31 U/L (16-63); AST 18 U/L (15-37); Albumin 3.6 g/dL (3.4-5.0); Alkaline Phosphatase 114 U/L (46-116); Anion Gap 6.1 mmol/L (3-11); BUN 13 mg/dL (7-18); Bilirubin, Direct 0.3 mg/dL (0.0-0.2); CO2 29.9 mmol/L (21.0-32.0); Calcium 8.9 mg/dL (8.5-10.1); Chloride 105 mmol/L (98-107); ETHANOL BLOOD < 3.0 mg/dL (<10); Glucose 106 mg/dL (74-106); Potassium 3.6 mmol/L (3.5-5.1); Sodium 141 mmol/L (136-145); Troponin I < 50 ng/L (<or=60)
[2021-12-18 12:44] VITALS: BP 145/75; PULSE 81; PULSE 89; RESP 24; O2SAT 92
[2021-12-18 13:04] LABS: *AMPHETAMINES SCREEN URINE Negative (Negative); *BARBITURATES SCREEN URINE Negative (Negative); *BENZODIAZEPINES SCREEN URINE Negative (Negative); Cannabinoids THC Negative (Negative); Cocaine Screen,Urine Negative (Negative); METHADONE URINE SCREEN Negative (Negative); OPIATES URINE SCREEN Negative (Negative)
[2021-12-18 13:08] LABS: Tricyclic Antidepressants Negative (Negative)
[2021-12-18 13:20] VITALS: PULSE 86; RESP 24; O2SAT 94
[2021-12-18] MEDS: Zonisamide 100 MG CAP 200 MG PO (13:29)
[2021-12-18 13:35] VITALS: RESP 24; O2SAT 94
== END 2021-12-18 13:50 | disposition home or self-care (01) ==
PROVIDERS: Emergency Provider Emergency Medicine; PCP Family Medicine
DX: R56.9 Unspecified convulsions (principal); I10 Essential (primary) hypertension; Z86.73 Personal history of transient ischemic attack (TIA), and cerebral infarction without residual deficits; Z87.891 Personal history of nicotine dependence; S01.512A Laceration without foreign body of oral cavity, initial encounter; X58.XXXA Exposure to other specified factors, initial encounter
CPT/HCPCS: 36415; 80053; 80076; 80307; 93005; 99284; 70450; 80320; 81003; 83735; 84484; 85025; 93010; 99285

== ENCOUNTER 2022-03-25 11:51 | Emergency (ER) | payer OTHER, SELFPAY ==
[2022-03-25] VITALS (28 sets, daily range): BP systolic 111–147; BP diastolic 76–91; PULSE 75–93; RESP 14–25; TEMP 36.3; O2SAT 89–95
--- NOTE | 2022-03-25 11:45 | DI.CT_ITS ---
Exam(s) CT HEAD - STROKE PROTOCOL EXAM: CT HEAD - STROKE PROTOCOL CLINICAL HISTORY: right sided weakness, LOC, confusion. TECHNIQUE: Imaging Protocol: Axial computed tomography images with coronal and sagittal reformatted images were created and reviewed COMPARISON: CT CT HEAD - STROKE PROTOCOL from 12/18/2021 FINDINGS: There are no skull fractures. There is no fluid in the visualized paranasal sinuses. Again noted is prominent area of encephalomalacia in the left temporal-parietal region with associate d ex vacuo dilatation of the left lateral ventricle, unchanged. These findings are in the territory of the left middle cerebral artery. No new obvious infarct. There is no evidence of intracranial hemorrhage, new effect, or shift of midline structures. There a re no extra-axial fluid collections. No blood within the ventricular system nor within the basal cis terns. IMPRESSION: Minimal if any significant change compared to the prior CT scan of 12/18/2021. Again noted is eviden ce of prior left middle cerebral artery territory infarct, with encephalomalacia in the left temporal -parietal region and ex vacuo dilatation left lateral ventricle. No evidence of obvious new ischemic area. If clinically indicated follow-up MRI can be performed. RADIATION DOSE DELIVERED: 877.05mGy.cm Total DLP DATA REPOSITORY: All CT scans at this facility are submitted to the National Radiology Data Registry (NRDR) Dose Index Registry (DIR) with the [employer] (ACR). RADIATION OPTIMIZATION: All CT scans at this facility use at least one of these dose optimization te chniques: automated exposure control; mA and/or kV adjustment per patient size (includes targeted exa ms where dose is matched to clinical indication); or iterative reconstruction.
--- NOTE | 2022-03-25 11:45 | RT.EKG_ITS ---
APPROVED REPORT Exam: Resting ECG Reason for Exam: altered Patient Location: E HR:94 bpm ECG Measurements Heart Rate 94 AXIS HI 174 P 35 QRSd 103 QRS 22 QT 371 T -66 QTc 464 Conclusion Sinus rhythm...normal P axis, V-rate 60- 99
--- NOTE | 2022-03-25 12:14 | DI.RAD_ITS ---
Exam(s) XR PORTABLE CHEST AP EXAM: XR PORTABLE CHEST AP CLINICAL HISTORY: altered. TECHNIQUE: 2D digital imaging was performed. COMPARISON: CR XR CHEST 1V IN DI DEPT from 07/26/2021 FINDINGS: Single AP portable view. Heart size is upper normal. The mediastinum is not widened. Lungs are clear. No infiltrates nor obvious pleural effusions. There is interposition of bowel loop between the liver and right hepatic lobe again noted. No free a ir. No hiatal hernia. IMPRESSION: No acute pulmonary findings on this single AP portable view of the chest. DATA REPOSITORY: RADIATION DOSE DELIVERED:
--- NOTE | 2022-03-25 12:15 | DI.CT_ITS ---
Exam(s) CT BRAIN NECK CTA EXAM: CT BRAIN NECK CTA CLINICAL HISTORY: LOC, chronic right sided weakness, new left sided. TECHNIQUE: Imaging Protocol: Axial CT angiography was performed with multi-slice acquisition and mu lti-planar and/or 3D reconstructions. CONTRAST MATERIAL: Intravenous: Omnipaque 350 Contrast volume:structured data in ml COMPARISON: CT CT BRAIN NECK CTA from 07/21/2021 FINDINGS: CTA Neck W: Aortic arch anatomy: The aortic arch anatomy is conventional and there is no significant stenosis at the origin of the great vessels off of the aortic arch. No intimal flap evident. Anterior circulation: Both common carotid arteries ascend with normal luminal diameters. Right carotid bulb and proximal internal carotid artery appear unremarkable with no significant plaqu e and the right ICA in the upper neck appears unremarkable. Left carotid bulb and proximal left ICA also again appear unremarkable. However, in the upper neck t here is again noted fusiform dilatation of the left internal carotid artery exhibiting diameter to 10 millimeters. Similar to previous. There is some medial wall calcified and noncalcified plaque at t his fusiform dilatation of the extracranial left internal carotid artery. Both internal carotid jazmyne tarah are patent in the skull base-carotid canals as well as within the cavernous sinuses. The suprac linoid aspects of both of these vessels are patent. Both A1 segments are patent as are the anterior cerebral arteries and there is no aneurysm at the lev el of the anterior communicating artery. Posterior circulation: Vertebral arteries originate in conventional fashion off of the subclavian arteries and there is no o bvious stenosis at the origin of the vertebral arteries. Left vertebral artery is dominant but both are patent without evidence of intraluminal thrombus nor d issection. At the skull base both vertebral arteries contribute to the formation of the basilar ajzmyne ry although the left vertebral artery is dominant at this level. Left vertebral artery is again note d to be dominant, unchanged from previous.. CTA Brain W: Anterior circulation: Both internal carotid arteries are patent in the skull base-carotid canals as well as within the cave rnous sinuses. The supraclinoid aspects of the ICAs are patent. Both A1 segments are patent as are the anterior cer ebral arteries and there is no evidence of aneurysm at the level of the anterior communicating artery . MCA: Right middle cerebral artery is patent. Left middle cerebral artery is unchanged from prior CT a study of 07/21/2021, exhibiting recanalizati on/patency and with opacification of vessels in the sylvian fissure, similar to 07/21/2021. Posterior circulation: The basilar artery ascends in the midline. Distally it gives off patent bilateral superior cerebella r arteries. Above this level the basilar artery terminates as patent bilateral posterior cerebral arteries. There is no evidence of aneurysm at the tip of the basilar artery nor elsewhere in the [id number] is. CT BRAIN: There is no evidence of intracranial hemorrhage, new mass effect, or shift of midline structures. La rge left-sided area of encephalomalacia in the territory of the left middle cerebral artery is again noted. There are no ring enhancing lesions in the brain. No abnormal meningeal enhancement. IMPRESSION: 1. Patent common carotid arteries in the neck. No hemodynamically significant stenosis at the level the carotid bifurcations and proximal internal carotid arteries. However, there is again noted fusif orm dilatation of the left internal carotid artery in the neck with diameter of 9-10 millimeters and unchanged calcified and noncalcified plaque at this level. . Suspect that this may be potentiate cu lprit source of emboli or thrombus to the brain. 2. Both vertebral arteries are patent, left being dominant. 3. Patent intracranial arteries, as described above. RADIATION DOSE DELIVERED: 1,296.8mGy.cm Total DLP DATA REPOSITORY: All CT scans at this facility are submitted to the National Radiology Data Registry (NRDR) Dose Index Registry (DIR) with the [employer] (ACR). RADIATION OPTIMIZATION: All CT scans at this facility use at least one of these dose optimization te chniques: automated exposure control; mA and/or kV adjustment per patient size (includes targeted exa ms where dose is matched to clinical indication); or iterative reconstruction.
[2022-03-25 12:37] LABS: Abs Immature Grans 0.05 10^3/uL (0.0-0.06); Absolute Basophil Count 0.06 10^3/uL (0.0-0.2); Absolute Eosinophil Count 0.17 10^3/uL (0.0-0.7); Absolute Lymphocyte Count 1.49 10^3/uL (1.2-3.4); Absolute Monocyte Count 0.42 10^3/uL (0.1-0.8); Absolute Neutrophil Count 5.21 10^3/uL (1.2-6.7); Basophils % 0.8; Eosinophils % 2.3; HCT 45.1 % (40.0-50.0); HGB 14.4 g/dL (13.5-17.5); Immature Grans % 0.7; Lymphocytes % 20.1; MCH 28.8 pg (27.0-33.0); MCHC 31.9 % (32.0-36.0); MCV 90 fL (80-95); MPV 9.6 fL (8.0-11.0); Monocytes % 5.7; Neutrophils % 70.4; Platelet Count 290 10^3/uL (130-400); RDW 13.5 % (11.8-14.1); RDW-SD 44.6 fL
[2022-03-25 12:38] LABS: Source Nasal/Nares
[2022-03-25 12:48] LABS: Prothrombin Time 9.8 sec (9.3-11.0)
[2022-03-25 12:55] LABS: ALT 20 U/L (16-63); AST 18 U/L (15-37); Albumin 3.6 g/dL (3.4-5.0); Alkaline Phosphatase 96 U/L (46-116); Anion Gap 10.7 mmol/L (3-11); BUN 16 mg/dL (7-18); Bilirubin, Total 0.9 mg/dL (0.2-1.0); CO2 26.3 mmol/L (21.0-32.0); CREATININE 1.2 mg/dL (0.70-1.30); Calcium 8.5 mg/dL (8.5-10.1); Chloride 103 mmol/L (98-107); Estimated GFR 67.53 (mL/min/1.73m2); Glucose 140 mg/dL (74-106); Potassium 3.4 mmol/L (3.5-5.1); Sodium 140 mmol/L (136-145); Total Protein 7.2 g/dL (6.4-8.2); Troponin I < 50 ng/L (<or=60)
[2022-03-25 13:07] LABS: Bilirubin Negative (Negative); Blood Trace-intact (Negative); Clarity Clear (Clear); Glucose Negative (Negative); Ketones Negative (Negative); Leukocyte Esterase Negative (Negative); Nitrite Negative (Negative); Specific Gravity >= 1.030 (1.005-1.025); Urobilinogen 0.2 EU/dL (Up TO 0.2)
[2022-03-25 13:14] LABS: Bacteria Negative HPF (Negative); Crystals Other HPF (Negative); Epithelial Cells Few HPF (Negative); RBC 0-2 HPF (0-2); WBC Negative HPF (0-5)
[2022-03-25 13:15] LABS: C & S Indicated? No; Casts 0-2 Hyaline LPF (Negative); Mucus Trace (Negative)
[2022-03-25 13:38] LABS: COVID-19 PCR Negative (Negative)
[2022-03-25] MEDS: Zonisamide 100 MG CAP PO (14:10)
[2022-03-25] MEDS: levETIRAcetam 1,000 MG in Normal Saline 100 ML 400 MG IVPB (14:10)
[2022-03-25] MEDS: levETIRAcetam 500 MG TAB 1000 MG PO (14:17)
--- NOTE | 2022-03-25 14:49 | ED.GENADUL_ITS ---
Discharge Plan Disposition Patient Disposition: HOME Condition: Stable Discharge Details Clinical Impression: Seizure Primary Care Provider: Antonella Romeo ED Provider: Geo Martinez Home Meds and New Rx's Prescriptions: New zonisamide 100 mg capsule 100 mg PO DAILY Qty: 60 0RF Rx Instructions: Take 100 mg daily for 1 week, then increase to 200 mg daily. Continued Ultra CoQ10 75 mg capsule 75 mg PO DAILY gxmmwor-weut-leruw-oreg-capryl 100 mg-150 mg- 50 mg-150 mg capsule 1 cap PO DAILY aspirin [Adult Aspirin Regimen] 81 mg tablet,delayed release (DR/EC) 81 mg PO DAILY thyroid (pork) 120 mg tablet 120 mg PO DAILY atorvastatin 80 mg tablet 80 mg PO DAILY losartan 25 mg tablet 25 mg PO DAILY Discharge Instructions Instructions: Epilepsy (ED) Additional Instructions: No driving a motor vehicle or operating heavy machinery until cleared by your primary care physician or neurologist. Please contact your primary care physician to arrange follow-up. Please follow-up with your neurologist. Call on Monday. Please take your seizure medication as follows: Zonisamide 100 mg daily for 1 week. Then increase dose to 200 mg daily and continue. Return to the ER immediately for any worsening or new concerning symptoms. Referrals: Antonella Romeo [Primary Care Provider] - Ayse Rocha MD [ [facility] STAFF PHYSICIAN] - Medical Decision Making 2021??62-year-old male with history of CVA with residual right-sided weakness, hyperlipidemia, hypertension, seizure disorder, here after unresponsive episode. Patient was observed to suddenly collapse and have full body shaking. Patient does have superficial bite to his tongue. I am highly concerned for acute seizure. Patient has been noncompliant with antiepileptic. Consider CVA. CT of the head was interpreted by radiology: Minimal if any significant change compared to the prior CT scan of 12/18/2021.? Again noted is evidence of prior left middle cerebral artery territory infarct, with encephalomalacia in the left temporal-parietal region and ex vacuo dilatation left lateral ventricle. No evidence of obvious new ischemic area.? If clinically indicated follow-up MRI can be performed. Chest x-ray was interpreted by radiology: No acute pulmonary findings on this single AP portable view of the chest. I called I called and spoke with Dr. Rocha who recommends restarting zonisamide at 100 mg x 1 week and then increasing to 200 mg as previously prescribed. She recommends giving additional dose now as well as Keppra 2 g. She agrees with CTV and CTA. 1612 --CTA was interpreted by radiology: Identical to prior study, no change. Patient reassessed and is requesting discharge. Plan for outpatient follow-up with neurology. Patient instructed to take his desonide 100 mg daily for the next 1 week and then increase to 200 mg daily. He understands importance of this medication and that he should not operate heavy machinery or motor vehicle until cleared to do so by his primary care physician or neurology. Disposition decision was made weighing the risks and benefits of hospitalization versus outpatient treatment, the risk for further decompensation, and the patient's wishes. The patient was stable and requested discharge. Prior to discharge, my usual and customary return precautions were reviewed with the patient - this included follow-up instructions and reason to return to the emergency department if condition worsens, does not improve as expected, or other new concerns arise. Lab Data Lab results reviewed: Yes I reviewed the patient's lab results. Labs: Laboratory Tests Range/Units 03/25/22 03/25/22 03/25/22 12:24 12:24 12:24 WBC (4.4-10.8) 10^3/uL 7.40 RBC (4.36-5.78) 10^6/uL 5.00 Hgb (13.5-17.5) g/dL 14.4 Hct (40.0-50.0) % 45.1 MCV (80-95) fL 90 MCH (27.0-33.0) pg 28.8 MCHC (32.0-36.0) % 31.9 L RDW (11.8-14.1) % 13.5 Plt Count (130-400) 10^3/uL 290 MPV (8.0-11.0) fL 9.6 Immature Gran % 0.7 Neutrophils % 70.4 Lymphocytes % 20.1 Monocytes % 5.7 Eosinophils % 2.3 Basophils % 0.8 Nucleated RBC % (0.0-0.3) % 0.0 Absolute Neutrophils (1.2-6.7) 10^3/uL 5.21 Absolute Lymphocytes (1.2-3.4) 10^3/uL 1.49 Absolute Monocytes (0.1-0.8) 10^3/uL 0.42 Absolute Eosinophils (0.0-0.7) 10^3/uL 0.17 Absolute Basophils (0.0-0.2) 10^3/uL 0.06 PT (9.3-11.0) sec 9.8 INR (0.9-1.1) 1.0 Sodium (136-145) mmol/L 140 Potassium (3.5-5.1) mmol/L 3.4 L Chloride (98-107) mmol/L 103 Carbon Dioxide (21.0-32.0) mmol/L 26.3 Anion Gap (3-11) mmol/L 10.7 BUN (7-18) mg/dL 16 Creatinine (0.70-1.30) mg/dL 1.2 Est GFR (CKD-EPI 2020) (mL/min/1.73m2) 67.53 Glucose (74-106) mg/dL 140 H Calcium (8.5-10.1) mg/dL 8.5 Magnesium (1.8-2.4) mg/dL 2.0 Total Bilirubin (0.2-1.0) mg/dL 0.9 AST (15-37) U/L 18 ALT (16-63) U/L 20 Alkaline Phosphatase (46-116) U/L 96 Troponin I (<or=60) ng/L < 50 Total Protein (6.4-8.2) g/dL 7.2 Albumin (3.4-5.0) g/dL 3.6 Urine Color (Yellow) Urine Clarity (Clear) Urine pH (5-8) Ur Specific [place] (1.005-1.025) Urine Protein (Negative) mg/dL Urine Ketones (Negative) mg/dL Urine Blood (Negative) Urine Nitrite (Negative) Urine Bilirubin (Negative) Urine Urobilinogen (Up TO 0.2) EU/dL Ur Leukocyte Esterase (Negative) Urine RBC (0-2) HPF Urine WBC (0-5) HPF Ur Epithelial Cells (Negative) HPF Urine Crystals (Negative) HPF Urine Bacteria (Negative) HPF Urine Casts (Negative) LPF Urine Mucus (Negative) Ur Culture Indicated? Urine Glucose (Negative) mg/dL COVID-19 Source SARS-CoV-2 (PCR) (Negative) Range/Units 03/25/22 03/25/22 12:29 12:50 WBC (4.4-10.8) 10^3/uL RBC (4.36-5.78) 10^6/uL Hgb (13.5-17.5) g/dL Hct (40.0-50.0) % MCV (80-95) fL MCH (27.0-33.0) pg MCHC (32.0-36.0) % RDW (11.8-14.1) % Plt Count (130-400) 10^3/uL MPV (8.0-11.0) fL Immature Gran % Neutrophils % Lymphocytes % Monocytes % Eosinophils % Basophils % Nucleated RBC % (0.0-0.3) % Absolute Neutrophils (1.2-6.7) 10^3/uL Absolute Lymphocytes (1.2-3.4) 10^3/uL Absolute Monocytes (0.1-0.8) 10^3/uL Absolute Eosinophils (0.0-0.7) 10^3/uL Absolute Basophils (0.0-0.2) 10^3/uL PT (9.3-11.0) sec INR (0.9-1.1) Sodium (136-145) mmol/L Potassium (3.5-5.1) mmol/L Chloride (98-107) mmol/L Carbon Dioxide (21.0-32.0) mmol/L Anion Gap (3-11) mmol/L BUN (7-18) mg/dL Creatinine (0.70-1.30) mg/dL Est GFR (CKD-EPI 2020) (mL/min/1.73m2) Glucose (74-106) mg/dL Calcium (8.5-10.1) mg/dL Magnesium (1.8-2.4) mg/dL Total Bilirubin (0.2-1.0) mg/dL AST (15-37) U/L ALT (16-63) U/L Alkaline Phosphatase (46-116) U/L Troponin I (<or=60) ng/L Total Protein (6.4-8.2) g/dL Albumin (3.4-5.0) g/dL Urine Color (Yellow) Yellow Urine Clarity (Clear) Clear Urine pH (5-8) 6.0 Ur Specific [place] (1.005-1.025) >= 1.030 H Urine Protein (Negative) mg/dL 30 H Urine Ketones (Negative) mg/dL Negative Urine Blood (Negative) Trace-intact H Urine Nitrite (Negative) Negative Urine Bilirubin (Negative) Negative Urine Urobilinogen (Up TO 0.2) EU/dL 0.2 Ur Leukocyte Esterase (Negative) Negative Urine RBC (0-2) HPF 0-2 Urine WBC (0-5) HPF Negative Ur Epithelial Cells (Negative) HPF Few Urine Crystals (Negative) HPF Other Urine Bacteria (Negative) HPF Negative Urine Casts (Negative) LPF 0-2 Hyaline Urine Mucus (Negative) Trace Ur Culture Indicated? No Urine Glucose (Negative) mg/dL Negative COVID-19 Source Nasal/Nares SARS-CoV-2 (PCR) (Negative) Negative HPI General Mode of arrival: ambulatory . Date/Time Provider Initiated Documentation: 03/25/22 11:53 . Limitations to Documentation: altered mental status . Information obtained by: patient . HPI Narrative: 62-year-old male with history of prior CVA, carotid dissection, residual right- sided weakness, seizure disorder, here after episode of loss of consciousness. History limited secondary to altered mental status during the episode. I contacted patient's friend who is with him during the episode and notes he was acting normal and suddenly collapsed to the ground and had full body shaking. Shaking lasted for few minutes and then resolved and then he was quite confused. EMS noted on their arrival patient was confused and seemed to have weakness of his left side in addition to right-sided weakness. Patient denies pain. He does note that he stopped taking his zonisamide about 2 months ago as he did not believe he needed it. Related Data Home Medications Medication Instructions Recorded Confirmed aspirin 81 mg tablet,delayed 81 mg PO DAILY 04/28/21 03/25/22 release (Adult Aspirin Regimen) atorvastatin 80 mg tablet 80 mg PO DAILY 04/28/21 03/25/22 losartan 25 mg tablet 25 mg PO DAILY 04/28/21 03/25/22 thyroid (pork) 120 mg tablet 120 mg PO DAILY 04/28/21 03/25/22 coenzyme Q10 75 mg capsule (Ultra 75 mg PO DAILY 08/09/21 03/25/22 CoQ10) tumeric 100 mg-tiffany 150 mg-olive 1 cap PO DAILY 08/09/21 03/25/22 50 mg-oreg 150 mg-caprylate capsule zonisamide 100 mg capsule 100 mg PO DAILY #60 caps 03/25/22 Previous Rx's Medication Instructions Recorded zonisamide 100 mg capsule 100 mg PO DAILY #60 caps 03/25/22 Allergies Allergy/AdvReac Type Severity Reaction Status Date / Time pollen extracts Allergy Intermediate Verified 03/25/22 12:38 General Stated Complaint: CVA/TIA MARLON: 2 Review of Systems All systems reviewed & are unremarkable except as noted in HPI and below Constitutional Constitutional: Denies fever(s) Cardiovascular Cardiovascular: Denies chest pain Respiratory Respiratory: Denies cough Neurologic Comments: Chronic unchanged weakness right side PFSH All Active Problems (Updated 03/25/22 @ 16:16 by Geo Martinez MD) Seizure (Acute) Depression (Chronic) Non-restorative sleep (Acute) Dissection of left carotid artery (Acute) Medical History CVA (cerebral vascular accident) Hyperlipidemia Hypertension Hypothyroidism Obesity (BMI 30.0-34.9) Surgical History Hx of shoulder surgery Social History Smoking/Tobacco Use Status: Former Tobacco Use Smoking risk assessment performed?: Yes Alcohol Intake: current Alcohol Intake frequency: a few times a week Alcohol type: hard liquor Drug use: Never Substance use type: does not use Household members: none Number of Children: 0 current occupation: Retired oil machine plumbing and heating mechanic Do you feel safe at home: Yes Exam Const General: cooperative and no acute distress [facility] Head: normocephalic and atraumatic Mouth: moist mucous membranes Eyes Conjunctivae: normal conjunctivae Sclera: normal sclerae Neck Neck: trachea midline and supple Resp Auscultation: clear to auscultation bilaterally, no rales, no rhonchi and no wheezes Cardio Rate: regular rate and not tachycardic Rhythm: regular rhythm GI Palpation: soft, not firm, no guarding, no masses, not rigid and nontender Skin General skin exam: no rashes or lesions noted Neuro General: patient alert, patient awake, patient oriented x3 and tone normal Extrem General: no edema Psych Appearance: grossly normal Mental Status: mental status grossly normal Course Vital Signs Vital signs: Vital Signs Temperature 36.3 C L 03/25/22 12:32 Pulse 88 03/25/22 12:32 Respiratory Rate 17 03/25/22 12:32 Blood Pressure 136/85 03/25/22 12:32 Pulse Oximetry 94 03/25/22 12:32 Temperature 36.3 C L 03/25/22 12:32 Temperature Source Temporal Artery Scan 03/25/22 12:32 Pulse 88 03/25/22 12:32 Respiratory Rate 16 03/25/22 12:34 Respiratory Effort Non-Labored 03/25/22 12:34 Respiratory Depth Normal 03/25/22 12:34 Respiratory Pattern Normal 03/25/22 12:34 Blood Pressure 136/85 03/25/22 12:32 Blood Pressure Position Sitting 03/25/22 12:32 Pulse Oximetry 94 03/25/22 12:32 Oxygen Delivery Method Room Air 03/25/22 12:32 Oxygen Flow Rate 0 03/25/22 12:32 Pain Level 0 03/25/22 12:32 Lab/Test Results Lab/Test Results: Laboratory Tests Range/Units 03/25/22 03/25/22 03/25/22 12:24 12:24 12:24 WBC (4.4-10.8) 10^3/uL 7.40 RBC (4.36-5.78) 10^6/uL 5.00 Hgb (13.5-17.5) g/dL 14.4 Hct (40.0-50.0) % 45.1 MCV (80-95) fL 90 MCH (27.0-33.0) pg 28.8 MCHC (32.0-36.0) % 31.9 L RDW (11.8-14.1) % 13.5 Plt Count (130-400) 10^3/uL 290 MPV (8.0-11.0) fL 9.6 Immature Gran % 0.7 Neutrophils % 70.4 Lymphocytes % 20.1 Monocytes % 5.7 Eosinophils % 2.3 Basophils % 0.8 Nucleated RBC % (0.0-0.3) % 0.0 Absolute Neutrophils (1.2-6.7) 10^3/uL 5.21 Absolute Lymphocytes (1.2-3.4) 10^3/uL 1.49 Absolute Monocytes (0.1-0.8) 10^3/uL 0.42 Absolute Eosinophils (0.0-0.7) 10^3/uL 0.17 Absolute Basophils (0.0-0.2) 10^3/uL 0.06 PT (9.3-11.0) sec 9.8 INR (0.9-1.1) 1.0 Sodium (136-145) mmol/L 140 Potassium (3.5-5.1) mmol/L 3.4 L Chloride (98-107) mmol/L 103 Carbon Dioxide (21.0-32.0) mmol/L 26.3 Anion Gap (3-11) mmol/L 10.7 BUN (7-18) mg/dL 16 Creatinine (0.70-1.30) mg/dL 1.2 Est GFR (CKD-EPI 2020) (mL/min/1.73m2) 67.53 Glucose (74-106) mg/dL 140 H Calcium (8.5-10.1) mg/dL 8.5 Magnesium (1.8-2.4) mg/dL 2.0 Total Bilirubin (0.2-1.0) mg/dL 0.9 AST (15-37) U/L 18 ALT (16-63) U/L 20 Alkaline Phosphatase (46-116) U/L 96 Troponin I (<or=60) ng/L < 50 Total Protein (6.4-8.2) g/dL 7.2 Albumin (3.4-5.0) g/dL 3.6 Urine Color (Yellow) Urine Clarity (Clear) Urine pH (5-8) Ur Specific [place] (1.005-1.025) Urine Protein (Negative) mg/dL Urine Ketones (Negative) mg/dL Urine Blood (Negative) Urine Nitrite (Negative) Urine Bilirubin (Negative) Urine Urobilinogen (Up TO 0.2) EU/dL Ur Leukocyte Esterase (Negative) Urine RBC (0-2) HPF Urine WBC (0-5) HPF Ur Epithelial Cells (Negative) HPF Urine Crystals (Negative) HPF Urine Bacteria (Negative) HPF Urine Casts (Negative) LPF Urine Mucus (Negative) Ur Culture Indicated? Urine Glucose (Negative) mg/dL COVID-19 Source SARS-CoV-2 (PCR) (Negative) Range/Units 03/25/22 03/25/22 12:29 12:50 WBC (4.4-10.8) 10^3/uL RBC (4.36-5.78) 10^6/uL Hgb (13.5-17.5) g/dL Hct (40.0-50.0) % MCV (80-95) fL MCH (27.0-33.0) pg MCHC (32.0-36.0) % RDW (11.8-14.1) % Plt Count (130-400) 10^3/uL MPV (8.0-11.0) fL Immature Gran % Neutrophils % Lymphocytes % Monocytes % Eosinophils % Basophils % Nucleated RBC % (0.0-0.3) % Absolute Neutrophils (1.2-6.7) 10^3/uL Absolute Lymphocytes (1.2-3.4) 10^3/uL Absolute Monocytes (0.1-0.8) 10^3/uL Absolute Eosinophils (0.0-0.7) 10^3/uL Absolute Basophils (0.0-0.2) 10^3/uL PT (9.3-11.0) sec INR (0.9-1.1) Sodium (136-145) mmol/L Potassium (3.5-5.1) mmol/L Chloride (98-107) mmol/L Carbon Dioxide (21.0-32.0) mmol/L Anion Gap (3-11) mmol/L BUN (7-18) mg/dL Creatinine (0.70-1.30) mg/dL Est GFR (CKD-EPI 2020) (mL/min/1.73m2) Glucose (74-106) mg/dL Calcium (8.5-10.1) mg/dL Magnesium (1.8-2.4) mg/dL Total Bilirubin (0.2-1.0) mg/dL AST (15-37) U/L ALT (16-63) U/L Alkaline Phosphatase (46-116) U/L Troponin I (<or=60) ng/L Total Protein (6.4-8.2) g/dL Albumin (3.4-5.0) g/dL Urine Color (Yellow) Yellow Urine Clarity (Clear) Clear Urine pH (5-8) 6.0 Ur Specific [place] (1.005-1.025) >= 1.030 H Urine Protein (Negative) mg/dL 30 H Urine Ketones (Negative) mg/dL Negative Urine Blood (Negative) Trace-intact H Urine Nitrite (Negative) Negative Urine Bilirubin (Negative) Negative Urine Urobilinogen (Up TO 0.2) EU/dL 0.2 Ur Leukocyte Esterase (Negative) Negative Urine RBC (0-2) HPF 0-2 Urine WBC (0-5) HPF Negative Ur Epithelial Cells (Negative) HPF Few Urine Crystals (Negative) HPF Other Urine Bacteria (Negative) HPF Negative Urine Casts (Negative) LPF 0-2 Hyaline Urine Mucus (Negative) Trace Ur Culture Indicated? No Urine Glucose (Negative) mg/dL Negative COVID-19 Source Nasal/Nares SARS-CoV-2 (PCR) (Negative) Negative PAWSS Have you Been Recently Intoxicated or Drunk Within the Last 30 days?: No Have you Ever Experienced Previous Episodes of Alcohol Withdrawal?: No Have you ever Experienced Withdrawal Seizures?: No Have you ever Experienced Delirium Tremens(DT)s?: No Have you ever undergone Alcohol Rehabilitation Treatment (i.e, inpt ot outpatient treatment programs)?: No Have you ever Experienced Blackouts?: No Have you ever Combined Alcohol with other Downers within the last 90 days?: No Have you ever Combined Alcohol with any other Substance of Abuse during the last 90 days?: No Result: 0
[2022-03-25] MEDS: Normal Saline Flush 10 ML SYR IVP (15:34)
[2022-03-25] MEDS: Normal Saline - Diluent 50 ML VIAL IJ (15:34)
[2022-03-25] MEDS: Omnipaque 350 MG/ML 100 ML BTL IJ (15:34)
--- NOTE | 2022-03-27 09:16 | NUR.NOTE ---
Nursing Note: Patient called asking about the prescription he thought was sent to [facility]. I looked it up, and it was sent to [facility] in [place]. I told the patient this and that they would be open tomorrow. He will pick it up then.
[2022-03-29 07:31] LABS: Zonisamide <1.0 mcg/mL (10-40)
== END 2022-03-25 16:51 | disposition home or self-care (01) ==
PROVIDERS: Emergency Provider Student in an Organized Health Care Education/Training Program; PCP Family Medicine
DX: G40.909 Epilepsy, unspecified, not intractable, without status epilepticus (principal); I69.351 Hemiplegia and hemiparesis following cerebral infarction affecting right dominant side; I10 Essential (primary) hypertension; Z20.822 Contact with and (suspected) exposure to COVID-19; Z79.82 Long term (current) use of aspirin; I77.71 Dissection of carotid artery
CPT/HCPCS: 36415; 70496; 70498; 80053; 80203; 87635; 93005; 96365; 99285; 70450; 71045; 81003; 81015; 83735; 84484; 85025; 85610; 93010; J1953; J3490

== ENCOUNTER 2024-01-12 15:13 | Outpatient (REF) | payer OTHER, MEDICARE, SELFPAY ==
[2024-01-12 16:30] LABS: Anion Gap 7.1 mmol/L (3-11); BUN 7 mg/dL (7-18); CO2 31.9 mmol/L (21.0-32.0); Calcium 9.7 mg/dL (8.5-10.1); Chloride 101 mmol/L (98-107); Estimated GFR 83.52 (mL/min/1.73m2); Glucose 84 mg/dL (74-106); NT-proBNP 152 pg/mL (<300); Potassium 4.2 mmol/L (3.5-5.1); Sodium 140 mmol/L (136-145); TSH (W/Ref FT4) 80.19 uIU/mL (0.36-3.74)
[2024-01-12 17:00] LABS: FREE T4 0.36 ng/dL (0.76-1.46)
[2024-01-12 17:15] LABS: Calculated LDL 169 mg/dL (<100); Cholesterol 238 mg/dL (<200); HDL Cholesterol 53 mg/dL (40-60); Triglyceride 83 mg/dL (<150)
[2024-01-12 22:36] LABS: PSA, Screening 3.9 ng/mL (<=4.5)
== END 2024-01-12 15:14 | disposition home or self-care (01) ==
LOC: NCHCN 15:13
PROVIDERS: PCP Family Medicine; Visit Provider Student in an Organized Health Care Education/Training Program
DX: I10 Essential (primary) hypertension (principal); E03.9 Hypothyroidism, unspecified; R35.1 Nocturia; Z12.5 Encounter for screening for malignant neoplasm of prostate
CPT/HCPCS: 80048; 80061; 84153; 83880; 84439; 84443

== ENCOUNTER 2024-01-26 00:24 | Outpatient (CLI) | payer OTHER, MEDICARE, SELFPAY ==
--- NOTE | 2024-01-26 | DI.CTLCSR_ITS ---
Exam(s) CT CHEST LUNG CANCER SCREEN EXAM: CT CHEST LUNG CANCER SCREEN CLINICAL HISTORY: SCREENING FOR LUNG CANCER, FORMER SMOKER, Z87.891 TECHNIQUE: Imaging Protocol: Axial computed tomography images with coronal and sagittal reformatted images were created and reviewed COMPARISON: CT CT CHEST WO from 06/01/2020 FINDINGS: There is artifact from patient's positioning. Tracheobronchial tree: Patent where visualized. No bronchiectasis. Pulmonary parenchyma: No consolidation or dominant measurable mass. No architectural distortion. Lung Nodules: None. Mediastinum and S[place]: No dominant adenopathy or fluid collection. The esophagus is unremarkable. Lymph nodes: Unremarkable. Pleura: No effusion or pneumothorax. Heart: The heart is not dilated. Mild coronary artery calcification. No pericardial effusion. Aorta: Thoracic aorta non-dilated.Mild atherosclerotic calcification is present. Upper abdomen: Unremarkable. Soft Tissues: Unremarkable. Bones: Within normal limits. IMPRESSION: No suspicious pulmonary nodules. Lung RADS Cat 1 - Negative: No nodules and definitely benign nodules Lung-RADS 1.0 CATEGORIES: Category 0 - Prior chest CT exam(s) being located for comparison. Category 1 - Annual screening in 12 months. No nodules or definitely benign nodules. Category 2 - Annual screening in 12 months. Benign appearance. Nodules with low likelihood of becomin g active cancer. Category 3 - 6-month follow-up. Probably benign. Short-term follow-up suggested. Nodules with low lik elihood of becoming active cancer. Category 4A - 3-month follow-up and CT/PET if >8 mm in size. Suspicious finding. Findings which requi re additional testing. Category 4B - Findings which require additional testing and tissue sampling. Suspicious finding. Category 4X - Category 3 or 4 nodules with additional features or imaging findings that increases the suspicion of malignancy. Modifier S- Potentially clinically significant finding. (Non lung cancer) RADIATION DOSE DELIVERED: 82.38mGy.cm Total DLP 82.38mGy.cmTotal DLP DATA REPOSITORY: All CT scans at this facility are submitted to the National Radiology Data Registry (NRDR) Dose Index Registry (DIR) with the [employer] (ACR). RADIATION OPTIMIZATION: All CT scans at this facility use at least one of these dose optimization te chniques: automated exposure control; mA and/or kV adjustment per patient size (includes targeted exa ms where dose is matched to clinical indication); or iterative reconstruction.
== END 2024-01-26 00:44 ==
PROVIDERS: PCP Family Medicine; Visit Provider Student in an Organized Health Care Education/Training Program
DX: Z87.891 Personal history of nicotine dependence (principal); Z12.2 Encounter for screening for malignant neoplasm of respiratory organs
CPT/HCPCS: 71271